=== PATIENT | female | born 2005 | race Caucasian/White ===

== ENCOUNTER 2025-07-15 14:50 | Emergency (ER) | payer MEDICAID ==
[~2025-07-15] VITALS: Ht 162.6 cm; Wt 63.0 kg
[2025-07-15 15:00] VITALS: O2SAT 99
[2025-07-15 15:13] LABS: CLARITY URINE CLOUDY (CLEAR); COLOR URINE YELLOW (YELLOW); GLUCOSE URINE NEGATIVE (NEGATIVE); KETONES URINE NEGATIVE (NEGATIVE); LEUKOCYTE ESTERASE URINE 1+ (NEGATIVE); NITRITE URINE NEGATIVE (NEGATIVE); OCCULT BLOOD URINE 2+ (NEGATIVE); PH URINE 7.0 (4.5-8.0); PROTEIN URINE NEGATIVE (NEGATIVE); SPECIFIC GRAVITY URINE 1.023 (1.005-1.030); UROBILINOGEN URINE 1.0 E.U./dL (0.2-1.0)
[2025-07-15 15:53] LABS: BACTERIA URINE 2+; SQUAMOUS EPITHELIAL CELL URINE 2+ /lpf (RARE/1+)
[2025-07-15 15:59] LABS: BASOPHILS % 0.6 % (0.0-2.0); EOSINOPHILS % 0.4 % (0.0-5.0); HEMATOCRIT. 37.4 % (36.0-48.0); HEMOGLOBIN. 12.4 g/dL (12.0-16.0); LYMPHOCYTES % 15.0 % (20.0-50.0); MEAN PLATELET VOLUME 10.8 fl (7.4-10.4); MONOCYTES % 6.7 % (2.0-8.0); NEUTROPHILS % 77.3 % (40.0-76.0); PLATELET 197 x1000/uL (130-400); RED BLOOD CELL COUNT 4.43 mill/uL (4.2-5.4); RED CELL DISTRIBUTION WIDTH 14.1 % (11.6-14.6)
[2025-07-15 16:10] LABS: INR 0.9
[2025-07-15 16:13] LABS: CREATININE 0.5 mg/dL (0.6-1.0); UREA NITROGEN BLOOD 5 mg/dL (9-23)
[2025-07-15 16:27] LABS: B-HCG QUANTITATIVE 124350 mIU/mL (<6)
[2025-07-15 17:09] VITALS: BP 133/91; PULSE 81; RESP 11; TEMP 37; O2SAT 99
== END 2025-07-15 17:23 | disposition home or self-care (01) ==
LOC: ER 14:50
DX: O20.0 Threatened abortion (principal); Z3A.09 9 weeks gestation of pregnancy; Z79.899 Other long term (current) drug therapy
CPT/HCPCS: 36415; 76801; 80048; 81003; 84702; 85025; 86850; 86900; 99284